=== PATIENT | male | born 1975 | race Hispanic/Latino ===

== ENCOUNTER → 2018-03-18 | Outpatient (CLI) | payer BC ==
--- NOTE | 2018-03-18 16:42 | Diagnostic Imaging Report ---
SHOULDER RIGHT COMPLETE - 3 views HISTORY: Pain COMPARISON: None available. FINDINGS: Bones: No acute displaced fracture. Osseous alignment is within normal limits. Joints: The joint spaces are well-maintained. Soft tissues: The soft tissues appear unremarkable. IMPRESSION: No acute radiographic abnormality. Signed by: Dr. Ayaan Stokes M.D. on 03/18/2018 4:39 PM
--- NOTE | 2018-03-18 16:44 | Diagnostic Imaging Report ---
HEEL LT, HEEL RT - 3 views HISTORY: Pain COMPARISON: None available. FINDINGS: Bones: No acute displaced fracture. Osseous alignment is within normal limits. Bone island in the left humeral laterally. Joints: The joint spaces are well-maintained. Soft tissues: The soft tissues appear unremarkable. IMPRESSION: No acute radiographic abnormality. Signed by: Dr. Ayaan Stokes M.D. on 03/18/2018 4:41 PM
== END ==
LOC: RAD 15:36
PROVIDERS: ATTEND Family Medicine
DX: M25.511 Pain in right shoulder (principal); M89.8X7 Other specified disorders of bone, ankle and foot; M79.672 Pain in left foot; M79.671 Pain in right foot